=== PATIENT | male | born 1995 | race Caucasian/White ===

== ENCOUNTER 2017-09-14 15:05 | Emergency (ER) | payer MEDICAID ==
[~2017-09-14] VITALS: Ht 180.3 cm; Wt 86.4 kg
[~2017-09-14 15:05] MED LIST: ASEN10TA SL; CLON0.2T PO; CLON0.3T PO; INVEGA PO; LAMO200T2 PO; LORA10TA7 PO; OMEP40CA37 PO; ONDA4TAB6 PO
[2017-09-14] MEDS ORDERED: normal saline 1000ML IV soln IV ONE (15:40)
[2017-09-14 16:09] LABS: BASOPHILS % (AUTO) 0.3 % (0-1); EOSINOPHILS % (AUTO) 0.1 % (0-6); HEMOGLOBIN 14.8 g/dl (14.0-17.9); LYMPHOCYTES % (AUTO) 12.2 % (21-51); MEAN CORPUSCULAR HEMOGLOBIN 30.2 PG (27.0-31.0); MEAN CORPUSCULAR HGB CONC 34.3 % (33.0-36.5); MEAN CORPUSCULAR VOLUME 87.8 FL (78-98); MEAN PLATELET VOLUME 8.2 FL (7.4-10.4); MONOCYTES # (AUTO) 0.6 X10'3 (0-0.9); NEUTROPHILS # (AUTO) 6.5 X10'3 (1.8-7.7); NEUTROPHILS % (AUTO) 80.4 % (42-75); PLATELET COUNT 266 X10'3 (140-440); RED BLOOD COUNT 4.89 X10'6 (4.70-6.10); WHITE BLOOD COUNT 8.1 X10'3 (4.5-11.0)
[2017-09-14 16:18] LABS: PARTIAL THROMBOPLASTIN TIME 25 SECONDS (22-32); PROTHROMBIN TIME 10.6 SECONDS (9.0-12.0)
[2017-09-14 16:23] LABS: ALANINE AMINOTRANSFERASE 20 U/L (12-78); ALBUMIN 4.5 G/DL (3.4-5.0); ALBUMIN/GLOBULIN RATIO 1.3 (1.1-1.5); ALKALINE PHOSPHATASE 101 IU/L (46-116); ANION GAP 10 (8-16); ASPARTATE AMINO TRANSFERASE 17 U/L (10-37); BILIRUBIN,TOTAL 0.6 MG/DL (0.1-1.0); BLOOD UREA NITROGEN 10 MG/DL (7-18); BUN/CREATININE RATIO 9.1 (5.4-32.0); CALCIUM 9.5 MG/DL (8.5-10.1); CHLORIDE 105 MMOL/L (99-107); GLUCOSE 109 MG/DL (70-104); POTASSIUM 3.4 MMOL/L (3.5-5.1); SODIUM 143 MMOL/L (135-145); TOTAL CARBON DIOXIDE 27.7 MMOL/L (24-32); TOTAL PROTEIN 8.1 G/DL (6.4-8.2); eGFR 84 ML/MIN
[2017-09-14] MEDS ORDERED: diatrozoate meglu/diatrozoate sod (37% iodine) 120ML oral solution PO ONE (17:05)
[2017-09-14] MEDS ORDERED: diatr meglu/diatrizoate 30ml oral sol.-(3 dose) bottle PO ONE (17:05)
[2017-09-14] MEDS ORDERED: iohexol 300mg/ml 100ml inj. ONE (17:29)
[2017-09-14 18:56] LABS: HEMATOCRIT 40.8 % (42.0-52.0); HEMOGLOBIN 14.2 g/dl (14.0-17.9); MEAN CORPUSCULAR HEMOGLOBIN 30.4 PG (27.0-31.0); MEAN CORPUSCULAR HGB CONC 34.9 % (33.0-36.5); MEAN CORPUSCULAR VOLUME 87.2 FL (78-98); PLATELET COUNT 252 X10'3 (140-440); RED BLOOD COUNT 4.68 X10'6 (4.70-6.10); WHITE BLOOD COUNT 8.3 X10'3 (4.5-11.0)
[2017-09-14 19:33] VITALS: BP 152/80
== END 2017-09-14 19:35 | disposition home or self-care (01) ==
LOC: ER 15:05
DX: K92.0 Hematemesis (principal); R10.11 Right upper quadrant pain; Z88.5 Allergy status to narcotic agent
CPT/HCPCS: 36415; 71045; 71260; 80053; 85025; 85027; 85610; 85730; 86885; 86900; 86901; J7030; Q9963; Q9967; 96360; 99285

== ENCOUNTER 2019-05-19 22:28 | Emergency (ER) | payer MEDICAID ==
[~2019-05-19] VITALS: Ht 182.9 cm; Wt 98.8 kg
[~2019-05-19 22:28] MED LIST changes: +OMEP40CA13 PO; -OMEP40CA37 PO
[2019-05-19] MEDS ORDERED: ipratropium/albuterol 3ml nebule NEB ONE (23:05)
[2019-05-19 23:39] VITALS: BP 138/86
== END 2019-05-19 23:40 | disposition home or self-care (01) ==
LOC: ER 22:28
DX: J45.901 Unspecified asthma with (acute) exacerbation (principal); F31.9 Bipolar disorder, unspecified; Z88.5 Allergy status to narcotic agent; Z79.899 Other long term (current) drug therapy
CPT/HCPCS: 93005; 94640; 94760; 99283

== ENCOUNTER 2019-08-28 15:45 | Emergency (ER) | payer MEDICAID ==
[~2019-08-28] VITALS: Ht 182.9 cm; Wt 103.2 kg
[2019-08-28 16:42] LABS: BASOPHILS % (AUTO) 0.3 % (0-1); EOSINOPHILS % (AUTO) 0.4 % (0-6); HEMATOCRIT 42.4 % (42.0-52.0); HEMOGLOBIN 14.3 g/dl (14.0-17.9); LYMPHOCYTES # (AUTO) 2.2 X10'3 (1.1-4.8); LYMPHOCYTES % (AUTO) 28.3 % (21-51); MEAN CORPUSCULAR HEMOGLOBIN 29.9 PG (27.0-31.0); MEAN CORPUSCULAR HGB CONC 33.8 g/dL (33.0-36.5); MEAN CORPUSCULAR VOLUME 88.5 FL (78-98); MEAN PLATELET VOLUME 7.7 FL (7.4-10.4); MONOCYTES # (AUTO) 0.5 X10'3 (0-0.9); MONOCYTES % (AUTO) 6.7 % (2-12); NEUTROPHILS % (AUTO) 64.3 % (42-75); PLATELET COUNT 310 X10'3 (140-440); RED BLOOD COUNT 4.79 X10'6 (4.70-6.10); RED CELL DISTRIBUTION WIDTH 13.9 % (11.5-14.5); WHITE BLOOD COUNT 7.7 X10'3 (4.5-11.0)
[2019-08-28 16:59] LABS: ALANINE AMINOTRANSFERASE 35 U/L (12-78); ALBUMIN 4.2 G/DL (3.4-5.0); ALBUMIN/GLOBULIN RATIO 1.1 (1.1-1.5); ALKALINE PHOSPHATASE 113 IU/L (46-116); ANION GAP 9 (8-16); ASPARTATE AMINO TRANSFERASE 18 U/L (10-37); BILIRUBIN,TOTAL 0.2 MG/DL (0.1-1.0); BLOOD UREA NITROGEN 13 MG/DL (7-18); BUN/CREATININE RATIO 10.5 (5.4-32.0); CALCIUM 9.1 MG/DL (8.5-10.1); CHLORIDE 105 MMOL/L (99-107); CREATININE 1.24 MG/DL (0.60-1.10); GLUCOSE 112 MG/DL (70-104); LIPASE 98 U/L (73-393); POTASSIUM 3.7 MMOL/L (3.5-5.1); SODIUM 142 MMOL/L (135-145); TOTAL CARBON DIOXIDE 27.6 MMOL/L (24-32); TOTAL PROTEIN 8.2 G/DL (6.4-8.2); eGFR 72 ML/MIN
[2019-08-28 18:20] VITALS: BP 153/86
== END 2019-08-28 18:22 | disposition home or self-care (01) ==
LOC: ER 15:47
DX: R10.11 Right upper quadrant pain (principal); R10.13 Epigastric pain; R19.7 Diarrhea, unspecified; J45.909 Unspecified asthma, uncomplicated; F31.9 Bipolar disorder, unspecified; F90.9 Attention-deficit hyperactivity disorder, unspecified type; Z88.5 Allergy status to narcotic agent; Z79.899 Other long term (current) drug therapy
CPT/HCPCS: 36415; 76700; 80053; 83690; 85025; 99284

== ENCOUNTER 2019-08-29 14:15 | Emergency (ER) | payer MEDICAID ==
[~2019-08-29] VITALS: Ht 182.9 cm; Wt 102.8 kg
[2019-08-29 14:49] VITALS: BP 135/72
== END 2019-08-29 16:10 | disposition left against medical advice (07) ==
LOC: ER 14:15
DX: R10.9 Unspecified abdominal pain (principal); Z53.21 Procedure and treatment not carried out due to patient leaving prior to being seen by health care provider

== ENCOUNTER 2021-11-07 23:22 | Emergency (ER) | payer MEDICARE, MEDICAID ==
[~2021-11-07] VITALS: Ht 182.9 cm; Wt 79.1 kg
[~2021-11-07 23:22] MED LIST changes: -OMEP40CA13 PO; +OMEP40CA21 PO
[2021-11-08 00:33] LABS: BASOPHILS % (AUTO) 0.3 % (0-1); EOSINOPHILS % (AUTO) 0.3 % (0-6); HEMATOCRIT 44.4 % (42.0-52.0); HEMOGLOBIN 15.3 g/dl (14.0-17.9); LYMPHOCYTES # (AUTO) 1.8 X10'3 (1.1-4.8); LYMPHOCYTES % (AUTO) 25.4 % (21-51); MEAN CORPUSCULAR HEMOGLOBIN 30.3 PG (27.0-31.0); MEAN CORPUSCULAR HGB CONC 34.4 g/dL (33.0-36.5); MEAN CORPUSCULAR VOLUME 88.3 FL (78-98); MEAN PLATELET VOLUME 8.6 FL (7.4-10.4); MONOCYTES # (AUTO) 0.6 X10'3 (0-0.9); MONOCYTES % (AUTO) 7.8 % (2-12); NEUTROPHILS # (AUTO) 4.8 X10'3 (1.8-7.7); NEUTROPHILS % (AUTO) 66.2 % (42-75); PLATELET COUNT 248 X10'3 (140-440); RED BLOOD COUNT 5.03 X10'6 (4.70-6.10); WHITE BLOOD COUNT 7.2 X10'3 (4.5-11.0)
--- NOTE | 2021-11-08 00:36 | NUR ---
Pt pink, alert, no acute/resp distress. UA collected, labeled and walked to lab.
[2021-11-08 00:42] LABS: CLARITY,URINE CLEAR (Clear); COLOR,URINE YELLOW (Yellow); GLUCOSE, URINE NEGATIVE (Neg); KETONES,URINE 15 mg/dl (Neg); LEUKOCYTE ESTERASE ,URINE NEGATIVE (Neg); NITRITES, URINE NEGATIVE (Neg); OCCULT BLOOD,URINE NEGATIVE (Neg); PROTEIN,URINE NEGATIVE (Neg)
[2021-11-08 00:44] LABS: UA COLLECTION TYPE CLN CATCH MIDSTREAM
[2021-11-08 00:51] LABS: ALANINE AMINOTRANSFERASE 18 U/L (12-78); ALBUMIN/GLOBULIN RATIO 1.2 (1.1-1.5); ALKALINE PHOSPHATASE 70 IU/L (46-116); ANION GAP 10 (8-16); ASPARTATE AMINO TRANSFERASE 8 U/L (10-37); BILIRUBIN,TOTAL 0.5 MG/DL (0.1-1.0); BLOOD UREA NITROGEN 9 MG/DL (7-18); CALCIUM 9.1 MG/DL (8.5-10.1); CHLORIDE 102 MMOL/L (99-107); CREATININE 1.12 MG/DL (0.60-1.10); GLUCOSE 106 MG/DL (70-104); LIPASE < 50 U/L (73-393); POTASSIUM 3.1 MMOL/L (3.5-5.1); SODIUM 140 MMOL/L (135-145); TOTAL CARBON DIOXIDE 28.1 MMOL/L (24-32); TOTAL PROTEIN 7.4 G/DL (6.4-8.2); eGFR 79 ML/MIN
[2021-11-08] MEDS ORDERED: ondansetron/PF 4mg/2ml inj IV ONE (01:45)
--- NOTE | 2021-11-08 01:59 | NUR ---
PIV 18G started right a/c x 1 attempt. Pt jerman. well remained pink, no acute/resp distress. Steady pt gait to CT. No acute/resp distress.
[2021-11-08] MEDS ORDERED: ketorolac trometh. 30mg/ml inj. IV ONE (04:10)
[2021-11-08 04:16] VITALS: BP 120/82
== END 2021-11-08 04:17 | disposition home or self-care (01) ==
LOC: ER 23:22
DX: R10.84 Generalized abdominal pain (principal); R11.10 Vomiting, unspecified; R19.7 Diarrhea, unspecified; R06.02 Shortness of breath; J45.909 Unspecified asthma, uncomplicated; Z88.8 Allergy status to other drugs, medicaments and biological substances; Z79.899 Other long term (current) drug therapy
CPT/HCPCS: 36415; 74176; 80053; 81003; 83690; 85025; 96374; 96375; 99284; J1885; J2405

== ENCOUNTER 2022-03-31 14:22 | Emergency (ER) | payer MEDICARE, MEDICAID ==
[~2022-03-31] VITALS: Ht 188 cm; Wt 165.0 kg
[2022-03-31] MEDS ORDERED: normal saline 1000ML IV soln IVB ONE (14:40)
[2022-03-31 14:57] LABS: BASOPHILS % (AUTO) 0.7 % (0-1); EOSINOPHILS # (AUTO) 0.1 X10'3 (0-0.9); HEMATOCRIT 41.7 % (42.0-52.0); HEMOGLOBIN 14.2 g/dl (14.0-17.9); LYMPHOCYTES # (AUTO) 2.1 X10'3 (1.1-4.8); LYMPHOCYTES % (AUTO) 32.3 % (21-51); MEAN CORPUSCULAR HEMOGLOBIN 30.3 PG (27.0-31.0); MEAN CORPUSCULAR VOLUME 89.2 FL (78-98); MEAN PLATELET VOLUME 8.3 FL (7.4-10.4); MONOCYTES # (AUTO) 0.5 X10'3 (0-0.9); MONOCYTES % (AUTO) 8.4 % (2-12); NEUTROPHILS # (AUTO) 3.7 X10'3 (1.8-7.7); NEUTROPHILS % (AUTO) 57.6 % (42-75); PLATELET COUNT 231 X10'3 (140-440); RED BLOOD COUNT 4.68 X10'6 (4.70-6.10); RED CELL DISTRIBUTION WIDTH 13.9 % (11.5-14.5); WHITE BLOOD COUNT 6.4 X10'3 (4.5-11.0)
[2022-03-31 15:18] LABS: ALANINE AMINOTRANSFERASE 22 U/L (12-78); ALBUMIN 3.7 G/DL (3.4-5.0); ALBUMIN/GLOBULIN RATIO 1.1 (1.1-1.5); ALKALINE PHOSPHATASE 66 IU/L (46-116); ANION GAP 6 (8-16); ASPARTATE AMINO TRANSFERASE 17 U/L (10-37); BILIRUBIN,TOTAL 0.3 MG/DL (0.1-1.0); BLOOD UREA NITROGEN 13 MG/DL (7-18); BUN/CREATININE RATIO 10.6 (5.4-32.0); CALCIUM 8.4 MG/DL (8.5-10.1); CHLORIDE 107 MMOL/L (99-107); CREATININE 1.23 MG/DL (0.60-1.10); GLUCOSE 101 MG/DL (70-104); POTASSIUM 3.6 MMOL/L (3.5-5.1); SODIUM 143 MMOL/L (135-145); TOTAL CARBON DIOXIDE 30.4 MMOL/L (24-32); eGFR 71 ML/MIN
[2022-03-31] MEDS ORDERED: ONDA4TAB12 PO (16:24)
[2022-03-31 17:53] VITALS: BP 105/70
== END 2022-03-31 17:35 | disposition home or self-care (01) ==
LOC: ER 14:24
DX: A08.4 Viral intestinal infection, unspecified (principal); J45.909 Unspecified asthma, uncomplicated; F31.9 Bipolar disorder, unspecified; Z88.5 Allergy status to narcotic agent
CPT/HCPCS: 36415; 80053; 85025; 99283; J7030

== ENCOUNTER 2022-04-19 00:14 | Emergency (ER) | payer MEDICARE, MEDICAID ==
[~2022-04-19] VITALS: Ht 182.9 cm; Wt 60.5 kg
[~2022-04-19 00:14] MED LIST changes: +ONDA4TAB12 PO
[2022-04-19 02:16] LABS: ALANINE AMINOTRANSFERASE 17 U/L (12-78); ALBUMIN 4.1 G/DL (3.4-5.0); ALBUMIN/GLOBULIN RATIO 1.2 (1.1-1.5); ALKALINE PHOSPHATASE 73 IU/L (46-116); ANION GAP 6 (8-16); ASPARTATE AMINO TRANSFERASE 12 U/L (10-37); BILIRUBIN,TOTAL 0.3 MG/DL (0.1-1.0); BLOOD UREA NITROGEN 12 MG/DL (7-18); BUN/CREATININE RATIO 11.1 (5.4-32.0); CALCIUM 8.8 MG/DL (8.5-10.1); CHLORIDE 102 MMOL/L (99-107); CREATININE 1.08 MG/DL (0.60-1.10); GLUCOSE 107 MG/DL (70-104); POTASSIUM 3.3 MMOL/L (3.5-5.1); SODIUM 139 MMOL/L (135-145); TOTAL CARBON DIOXIDE 31.3 MMOL/L (24-32); TOTAL PROTEIN 7.6 G/DL (6.4-8.2); eGFR 83 ML/MIN
[2022-04-19 02:27] LABS: BASOPHILS % (AUTO) 0.6 % (0-1); EOSINOPHILS # (AUTO) 0.1 X10'3 (0-0.9); EOSINOPHILS % (AUTO) 0.9 % (0-6); HEMATOCRIT 44.8 % (42.0-52.0); HEMOGLOBIN 15.5 g/dl (14.0-17.9); LYMPHOCYTES # (AUTO) 2.8 X10'3 (1.1-4.8); LYMPHOCYTES % (AUTO) 36.8 % (21-51); MEAN CORPUSCULAR HEMOGLOBIN 31.2 PG (27.0-31.0); MEAN CORPUSCULAR HGB CONC 34.5 g/dL (33.0-36.5); MEAN CORPUSCULAR VOLUME 90.3 FL (78-98); MEAN PLATELET VOLUME 8.6 FL (7.4-10.4); MONOCYTES # (AUTO) 0.7 X10'3 (0-0.9); MONOCYTES % (AUTO) 8.9 % (2-12); NEUTROPHILS % (AUTO) 52.8 % (42-75); PLATELET COUNT 251 X10'3 (140-440); RED BLOOD COUNT 4.96 X10'6 (4.70-6.10); WHITE BLOOD COUNT 7.6 X10'3 (4.5-11.0)
[2022-04-19 02:28] LABS: ETHANOL < 0.010 GM/DL (0.0-0.010)
[2022-04-19] MEDS ORDERED: PALI9TAB PO (02:38)
[2022-04-19] MEDS ORDERED: LAMO200T2 PO (02:39)
--- NOTE | 2022-04-19 02:47 | NUR ---
The patient is a 26 year old male who was brought in by his mother for a mental health evaluation. He has a long history of mental illness and has been diagnoised as Schizoaffective Disorder. He went to stay with his father and went off his psychiatric medications and just recently has been restarted on them. Per his report he has not been taking them consistently and the last time he took his Invega was 3 days ago. He stated he has been feeling very distressed by a recent break up with a girlfriend and he does not get along with his housemates and added, "Every time I leave the room they talk bad about me" He then stated that he just wanted to end his life. His psychiatry provider is Alejandrina Espinoza in [place]. He stated that he goes to [place] because he has always been treated there and that is where he feels comfortable. He is a client of [facility]. He stated that the last psychiatric hospitalization was at age 14 or 15. He stated that he has been having command auditory hallucinations telling he is not worthy and to kill himself. He is suicidal to cut his throat with a knife. He aslo reports visual hallucinations of himself standing in front of himself with cuts on his arms and legs. He reports his anxiety is high. Appetite is decreased. He has been having insomnia and has only been sleeping 3-5 hours per night. He is saying he can be safe here in the overflow area but is directly in front of the nursing station for close observation.
[2022-04-19 02:54] LABS: URINE AMPHETAMINE SCREEN NEGATIVE (Neg); URINE BARBITUATE SCREEN NEGATIVE (Neg); URINE BENZODIAZEPINES SCREEN NEGATIVE (Neg); URINE CANNABINOID SCREEN NEGATIVE (Neg); URINE COCAINE SCREEN NEGATIVE (Neg); URINE METHADONE SCREEN NEGATIVE (Neg); URINE OPIATE SCREEN NEGATIVE (Neg); URINE PHENCYCLIDINE SCREEN NEGATIVE (Neg)
--- NOTE | 2022-04-19 04:30 | NUR ---
The patient appears to be sleeping
--- NOTE | 2022-04-19 05:02 | NUR ---
Pt packet was sent to [facility].
[2022-04-19 05:25] VITALS: BP 108/73
--- NOTE | 2022-04-19 05:28 | NUR ---
The patient appears to be sleeping
--- NOTE | 2022-04-19 06:40 | NUR ---
Patient sleeping supine. No distress observed. Continue to monitor.
[2022-04-19] MEDS ORDERED: lamoTRIgine 100mg tablet PO SCH (08:00)
--- NOTE | 2022-04-19 08:10 | NUR ---
RN awoke patient for breakfast. Patient opened his eyes and went back to sleep. No distress observed. Continue to monitor.
--- NOTE | 2022-04-19 10:06 | NUR ---
Garland MONTALVO, evaluating patient. Continue to monitor.
--- NOTE | 2022-04-19 11:42 | NUR ---
Patient is denying all symptoms now even thought he has not taken his antipsychotic in over a week. Patient wants to go home to his mother. Mother has 4 other children with special needs and needs to make room for patient as patient was living with a friend. 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 Continue to monitor.
--- NOTE | 2022-04-19 12:10 | NUR ---
Patient eating lunch. No distress observed. Continue to monitor.
[2022-04-19] MEDS ORDERED: nicotine 21mg patch - 24 hr TD ONE (12:35)
--- NOTE | 2022-04-19 13:02 | NUR ---
Patient watching T.V. No distress observed. acontinue to monitor.
--- NOTE | 2022-04-19 15:08 | NUR ---
Patient continues to watch T.V. No distress observed. Continue to monitor.
--- NOTE | 2022-04-19 16:17 | NUR ---
Pk torres in [facility] - 04/19/22 at 1618 by CLAU Garland MONTALVO, speaking with patient at
--- NOTE | 2022-04-19 16:18 | NUR ---
[facility] speaking with patient about the break up he just had. Garland asking patient what would prevent him from feeling suicidal again if he has another argument with his ex-girlfriend. Patient states he feels he is done with her. Patient calm and in no distress. Continue to monitor.
[2022-04-19] MEDS ORDERED: PALIPERIDONE 3 MG TAB.ER.24 PO SCH (21:00)
== END 2022-04-19 17:37 | disposition home or self-care (01) ==
LOC: ER 00:14
DX: F23 Brief psychotic disorder (principal); Z20.822 Contact with and (suspected) exposure to COVID-19; J45.909 Unspecified asthma, uncomplicated; F31.9 Bipolar disorder, unspecified; Z88.5 Allergy status to narcotic agent; Z79.899 Other long term (current) drug therapy
CPT/HCPCS: 36415; 80053; 80305; 80320; 84443; 85025; 87811; 99283

== ENCOUNTER 2022-10-16 21:00 | Emergency (ER) | payer MEDICARE, MEDICAID ==
[~2022-10-16] VITALS: Ht 185.4 cm; Wt 79.5 kg
[~2022-10-16 21:00] MED LIST changes: -ASEN10TA SL; -CLON0.2T PO; -CLON0.3T PO; -INVEGA PO; -LORA10TA7 PO; -OMEP40CA21 PO; -ONDA4TAB12 PO; -ONDA4TAB6 PO; +PALI9TAB PO
[2022-10-16 21:11] VITALS: BP 103/98
[2022-10-16] MEDS ORDERED: LIDOcaine 1% 30ml preserv. free vial IJ ONE (23:35)
--- NOTE | 2022-10-16 23:47 | NUR ---
PT PRESENTED WITH RIGHT HAND BOXER FX CSM INTACT
--- NOTE | 2022-10-17 00:36 | NUR ---
SPLINT IN PLACE BY DILLON LE XR IN PROGRESS AT PRESENT TIME
== END 2022-10-17 01:06 | disposition home or self-care (01) ==
LOC: ER 21:01
DX: S62.336A Displaced fracture of neck of fifth metacarpal bone, right hand, initial encounter for closed fracture (principal); J45.909 Unspecified asthma, uncomplicated; F31.9 Bipolar disorder, unspecified; X58.XXXA Exposure to other specified factors, initial encounter; Y93.89 Activity, other specified; Y92.89 Other specified places as the place of occurrence of the external cause; Y99.8 Other external cause status; Z88.5 Allergy status to narcotic agent
CPT/HCPCS: 26605; 73120; 73130; 99284; A6449

== ENCOUNTER 2023-01-15 17:27 | Emergency (ER) | payer MEDICARE ==
[~2023-01-15] VITALS: Ht 182.9 cm; Wt 72.7 kg
[~2023-01-15 17:27] MED LIST changes: +PANT-47 PO
[2023-01-15 17:58] LABS: BASOPHILS # (AUTO) 0.1 X10'3 (0-0.2); BASOPHILS % (AUTO) 0.6 % (0-1); EOSINOPHILS # (AUTO) 0.1 X10'3 (0-0.9); EOSINOPHILS % (AUTO) 1.1 % (0-6); HEMATOCRIT 46.2 % (42.0-52.0); HEMOGLOBIN 15.6 g/dl (14.0-17.9); LYMPHOCYTES % (AUTO) 24.8 % (21-51); MEAN CORPUSCULAR HEMOGLOBIN 30.8 PG (27.0-31.0); MEAN CORPUSCULAR HGB CONC 33.9 g/dL (33.0-36.5); MEAN CORPUSCULAR VOLUME 90.8 FL (78-98); MEAN PLATELET VOLUME 8.2 FL (7.4-10.4); MONOCYTES # (AUTO) 0.6 X10'3 (0-0.9); MONOCYTES % (AUTO) 7.5 % (2-12); NEUTROPHILS # (AUTO) 5.5 X10'3 (1.8-7.7); PLATELET COUNT 259 X10'3 (140-440); RED BLOOD COUNT 5.08 X10'6 (4.70-6.10); RED CELL DISTRIBUTION WIDTH 14.3 % (11.5-14.5); WHITE BLOOD COUNT 8.3 X10'3 (4.5-11.0)
[2023-01-15 18:12] LABS: ALANINE AMINOTRANSFERASE 16 U/L (12-78); ALBUMIN 4.1 G/DL (3.4-5.0); ALBUMIN/GLOBULIN RATIO 1.2 (1.1-1.5); ALKALINE PHOSPHATASE 73 IU/L (46-116); ANION GAP 6 (8-16); ASPARTATE AMINO TRANSFERASE 13 U/L (10-37); BILIRUBIN,TOTAL 0.2 MG/DL (0.1-1.0); BLOOD UREA NITROGEN 14 MG/DL (7-18); CALCIUM 9.3 MG/DL (8.5-10.1); CHLORIDE 105 MMOL/L (99-107); CREATININE 1.17 MG/DL (0.60-1.10); GLUCOSE 106 MG/DL (70-104); POTASSIUM 4.1 MMOL/L (3.5-5.1); SODIUM 139 MMOL/L (135-145); TOTAL PROTEIN 7.5 G/DL (6.4-8.2); eGFR 75 ML/MIN
--- NOTE | 2023-01-15 18:21 | NUR ---
Pt's mother called, her phone number is [phone]. She is available for if additional information is needed.
[2023-01-15 19:12] VITALS: BP 124/79
== END 2023-01-15 19:14 | disposition home or self-care (01) ==
LOC: ER 17:28
DX: R55 Syncope and collapse (principal); F43.20 Adjustment disorder, unspecified; F31.9 Bipolar disorder, unspecified; J45.909 Unspecified asthma, uncomplicated; Z88.5 Allergy status to narcotic agent
CPT/HCPCS: 36415; 71045; 80053; 83880; 84484; 85025; 93005; 99285

== ENCOUNTER 2023-01-19 11:11 | Emergency (ER) | payer MEDICARE ==
[~2023-01-19] VITALS: Ht 185.4 cm; Wt 75.0 kg
--- NOTE | 2023-01-19 11:30 | NUR ---
FATHER ANJELICA CALLED, WOULD LIKE AN UPDATE JUDE. HIS NUMBER IS IN PATIENT DATA.
[2023-01-19] MEDS ORDERED: levetiracetam inj 1,000 MG in normal saline 100ml IV soln 90 ML IV ONE (11:45)
[2023-01-19] MEDS ORDERED: normal saline 1000ML IV soln IVB ONE (11:45)
[2023-01-19] MEDS ORDERED: levetiracetam inj 1,000 MG in normal saline 100ml IV soln 100 ML IV ONE (11:50)
[2023-01-19 12:17] LABS: BASOPHILS % (AUTO) 0.6 % (0-1); EOSINOPHILS # (AUTO) 0.2 X10'3 (0-0.9); EOSINOPHILS % (AUTO) 2.1 % (0-6); HEMATOCRIT 45.8 % (42.0-52.0); HEMOGLOBIN 15.3 g/dl (14.0-17.9); LYMPHOCYTES # (AUTO) 2.2 X10'3 (1.1-4.8); LYMPHOCYTES % (AUTO) 29.5 % (21-51); MEAN CORPUSCULAR HEMOGLOBIN 30.4 PG (27.0-31.0); MEAN CORPUSCULAR HGB CONC 33.3 g/dL (33.0-36.5); MEAN CORPUSCULAR VOLUME 91.2 FL (78-98); MEAN PLATELET VOLUME 8.6 FL (7.4-10.4); MONOCYTES # (AUTO) 0.5 X10'3 (0-0.9); MONOCYTES % (AUTO) 7.3 % (2-12); NEUTROPHILS # (AUTO) 4.5 X10'3 (1.8-7.7); NEUTROPHILS % (AUTO) 60.5 % (42-75); PLATELET COUNT 235 X10'3 (140-440); RED BLOOD COUNT 5.02 X10'6 (4.70-6.10); RED CELL DISTRIBUTION WIDTH 13.8 % (11.5-14.5); WHITE BLOOD COUNT 7.4 X10'3 (4.5-11.0)
[2023-01-19 12:28] LABS: ALANINE AMINOTRANSFERASE 10 U/L (12-78); ALBUMIN 3.6 G/DL (3.4-5.0); ALBUMIN/GLOBULIN RATIO 1.2 (1.1-1.5); ALKALINE PHOSPHATASE 69 IU/L (46-116); ANION GAP 5 (8-16); ASPARTATE AMINO TRANSFERASE 11 U/L (10-37); BILIRUBIN,TOTAL 0.3 MG/DL (0.1-1.0); BLOOD UREA NITROGEN 9 MG/DL (7-18); BUN/CREATININE RATIO 9.6 (10.0-20.0); CALCIUM 8.9 MG/DL (8.5-10.1); CHLORIDE 105 MMOL/L (99-107); CREATININE 0.94 MG/DL (0.60-1.10); GLUCOSE 97 MG/DL (70-104); POTASSIUM 3.9 MMOL/L (3.5-5.1); SODIUM 138 MMOL/L (135-145); TOTAL CARBON DIOXIDE 27.6 MMOL/L (24-32); TOTAL PROTEIN 6.7 G/DL (6.4-8.2); eGFR > 90 ML/MIN
[2023-01-19 12:32] LABS: MAGNESIUM 1.8 MG/DL (1.5-2.4)
[2023-01-19 12:57] LABS: CLARITY,URINE CLEAR (Clear); COLOR,URINE YELLOW (Yellow); GLUCOSE, URINE NEGATIVE (Neg); KETONES,URINE NEGATIVE (Neg); LEUKOCYTE ESTERASE ,URINE NEGATIVE (Neg); NITRITES, URINE NEGATIVE (Neg); OCCULT BLOOD,URINE NEGATIVE (Neg); PROTEIN,URINE NEGATIVE (Neg); UROBILINOGEN,URINE 0.2 E.U/dL (0.2-1.0)
[2023-01-19 12:58] LABS: UA COLLECTION TYPE CLN CATCH MIDSTREAM
[2023-01-19] MEDS ORDERED: LEVE250T4 PO (13:15)
[2023-01-19 13:50] VITALS: BP 108/47
== END 2023-01-19 13:52 | disposition home or self-care (01) ==
LOC: ER 11:12
DX: G40.909 Epilepsy, unspecified, not intractable, without status epilepticus (principal); J45.909 Unspecified asthma, uncomplicated; F31.9 Bipolar disorder, unspecified; Z88.5 Allergy status to narcotic agent
CPT/HCPCS: 36415; 70450; 80053; 81003; 83735; 84484; 85025; 96365; 99285; J1953; J3490; J7030

== ENCOUNTER 2023-05-14 15:48 | Emergency (ER) | payer MEDICARE ==
[~2023-05-14] VITALS: Ht 185.4 cm; Wt 77.3 kg
[~2023-05-14 15:48] MED LIST changes: +LEVE250T4 PO
[2023-05-14 16:51] VITALS: BP 135/83; PULSE 100; RESP 18; TEMP 98.4; O2SAT 100
== END 2023-05-14 20:57 | disposition left against medical advice (07) ==
LOC: ER 15:49
DX: R42 Dizziness and giddiness (principal); F41.9 Anxiety disorder, unspecified; R25.1 Tremor, unspecified; M25.562 Pain in left knee; Z53.21 Procedure and treatment not carried out due to patient leaving prior to being seen by health care provider
CPT/HCPCS: 99281

== ENCOUNTER 2023-05-22 16:31 | Emergency (ER) | payer MEDICARE | END 2023-05-22 20:19 | disposition left against medical advice (07) | LOC: ER 16:32 | DX: R56.9 Unspecified convulsions (principal); Z53.21 Procedure and treatment not carried out due to patient leaving prior to being seen by health care provider ==

== ENCOUNTER 2025-07-09 16:09 | Emergency (ER) | payer MEDICARE, MEDICAID ==
[~2025-07-09] VITALS: Ht 185.4 cm; Wt 73.5 kg
[2025-07-09 16:22] VITALS: TEMP 98.6
[2025-07-09 17:32] VITALS: BP 141/81; PULSE 83; RESP 12; O2SAT 100
[2025-07-09] MEDS ORDERED: AMOX-117 PO (17:41)
[2025-07-09] MEDS ORDERED: IBUP-1986 PO (17:41)
--- NOTE | 2025-07-09 17:42 | Physician Documentation ---
HPI ~ General Chief Complaint: Tooth Problem Stated Complaint: MOUTH PAIN Time Seen by MD: 12:30 Primary Medical Doctor: [facility] History of Present Illness HPI Comment This is a 30-year-old male who presents with progressively worsening upper frontal dental pain, patient reports that he chipped a tooth several months ago and the pain to his front upper teeth have been worsening for several months though much worse today. Patient reports no fevers, difficulty swallowing, or difficulty breathing. Patient reports no other acute symptoms or concerns. Medication Reconciliation Allergies: Coded Allergies: codeine (Verified Adverse Reaction, Mild, 07/09/25) Scheduled Amox Tr/Potassium Clavulanate (Augmentin 875-125 Tablet), 1 TAB PO Q12H Ibuprofen (Ibuprofen), 1 TAB PO Q8H Lamotrigine* (Lamictal*), 1 TAB PO BID, (Reported) Levetiracetam (Keppra), 1 TAB PO Q12H Paliperidone (Invega), 1 TAB PO HS, (Reported) Pantoprazole Sodium (PROTONIX tablet), 1 TAB PO DAILY Past Medical History Past Medical History: Seizures, Asthma, *PSYCH*, Bipolar Past Surgical History: no surgical history Alcohol Use: None Drug Use: none Lives with: Family, Other Lives In: Assisted Care Occupation: employed Review of Systems ROS As stated above in the HPI, otherwise all systems are reviewed and negative. Physical Exam Vital Signs: Temperature: 98.6, Source: Temporal, Heart Rate: 83, Respiratory Rate: 12, BP: 141/81, Pulse Oximetry: 100, Weight: 73.500 Oxygen Flow Rate: 0 Physical Exam VITALS: Reviewed and as above. GENERAL: Alert, nontoxic appearing, no apparent distress. HEENT: Severe decayed to upper anterior teeth, small amount of purulence from base of teeth, gums erythematous mildly swollen, No facial swelling, no submandibular swelling, no elevation of the tongue, no drooling RESPIRATORY: No increased work of breathing, no respiratory distress, speaking in full clear sentences Progress Results/Orders Results/Orders Completed Orders - DOM ZAMORA BANQUET WAITER/WAITRESS Ketorolac Trometh 15mg/Ml Vial (Toradol (07/09/25 17:45) Amox Tr/Potassium Clavulanate (Augmentin (07/09/25 17:45) Vital Signs 07/09/25 07/09/25 16:22 17:32 Temp 98.6 Pulse 83 83 Resp 12 12 B/P (MAP) 141/81 141/81 Pulse Ox 100 100 O2 Flow Rate 0 Medical Decision Making Additional information obtaine: N/A Findings This well appearing 30-year-old male presented with dental pain to his upper anterior teeth and gums. Based on history and physical exam I have low clinical suspicion for peritonsillar abscess, uvulitis, deep tissue space infection of the head/neck, or impending airway compromise. There was no submandibular swelling or elevation of the tongue, the uvula was midline, patient is able to swallow fluids and secretion without difficulty, there is no increased work of breathing or noisy breathing. Physical exam benign patient is otherwise well- appearing. Patient is appropriate for follow up outpatient with dentist as soon as possible. Based on presentation I am concerned for odontogenic infection and antibiotic treatment with Augmentin is indicated. Discussed with the patient home care instructions return to care precautions, and follow up instructions which he verbalized understanding of. Differential Dx:Considerations: Include: Alveolar fracture, Alveolar osteitis, ANUG, Facial Cellulitis, Periapical abscess, Peridontal abscess, Post-extraction bleeding, Pulpitis, Tooth avulsion, Tooth Fracture, Trigeminal neuralgia, Tooth subluxation, Other (Felton's angina) Departure Time of Disposition: 17:40 Disposition: 01 HOME / SELF CARE / HOMELESS Impression: Primary Impression: Toothache Condition: Improved Discharge Instructions: Dental Pain Additional Instructions: Please use the medications as prescribed. Please follow up with a dentist as soon as possible. Please follow up with your primary care provider in the next few days. Please return to the emergency department for any new or worsening concerning symptoms. Referrals: NO PRIMARY CARE PROVIDER (PCP) Prescriptions Amox Tr/Potassium Clavulanate (Augmentin 875-125 Tablet) 1 Each Tablet 1 TAB PO Q12H for 10 Days, #20 TAB Prov: DOM ZAMORA 07/09/25 Ibuprofen (Ibuprofen) 800 Mg Tablet 1 TAB PO Q8H for pain for 10 Days, #30 TAB 0 Refills Prov: DOM ZAMORA 07/09/25 Education Educated: Patient Educated regarding: diagnosis, treatment, prognosis, need for follow up Signature Scribe Signature: No scribe Attestation: The note accurately reflects work and decisions made by me.COLIN Salinas 07/10/25 12:34 DOM ZAMORA Jul 09, 2025 17:42
[2025-07-09] MEDS: amox tr/potassium clavulanate 875/125mg TAB PO ONE (17:50)
[2025-07-09] MEDS: ketorolac trometh 15mg/ml vial 15 MG/ML ML IM ONE (17:51)
== END 2025-07-09 17:58 | disposition home or self-care (01) ==
LOC: ER 16:09
DX: K08.89 Other specified disorders of teeth and supporting structures (principal); F31.9 Bipolar disorder, unspecified; Z88.5 Allergy status to narcotic agent; Z79.899 Other long term (current) drug therapy
CPT/HCPCS: 96372; 99283; J1885